=== PATIENT | female | born 1955 | race Two or more races ===

== ENCOUNTER 2018-11-10 07:56 | Emergency (ER) | payer OTHER ==
[~2018-11-10] VITALS: Ht 157.5 cm; Wt 77.1 kg
== END 2018-11-10 14:45 | disposition home or self-care (01) ==
LOC: ER 07:56
DX: R42 Dizziness and giddiness (principal)

== ENCOUNTER 2018-11-17 08:43 | Emergency (ER) | payer OTHER ==
[~2018-11-17] VITALS: Ht 157.5 cm; Wt 76.7 kg
== END 2018-11-17 12:45 ==
LOC: ER 08:43
DX: M54.5 Low back pain (principal); M17.11 Unilateral primary osteoarthritis, right knee; M16.0 Bilateral primary osteoarthritis of hip; I16.0 Hypertensive urgency

== ENCOUNTER 2018-11-26 11:32 | Emergency (ER) | payer OTHER ==
[~2018-11-26] VITALS: Ht 157.5 cm; Wt 77.6 kg
[2018-11-27] MEDS ORDERED: NAPRELAN500 M1 PO (13:58)
[2018-11-27] MEDS ORDERED: COZAAR100 MG PO (13:58)
[2018-11-27] MEDS ORDERED: HYDROCHLOROTH12.5 MG PO (13:59)
== END 2018-11-26 17:12 | disposition home or self-care (01) ==
LOC: ER 11:32
DX: K80.20 Calculus of gallbladder without cholecystitis without obstruction (principal)

== ENCOUNTER 2018-11-27 13:27 | Emergency (ER) | payer OTHER ==
[~2018-11-27] VITALS: Ht 157.5 cm; Wt 71.7 kg
[2018-11-27] MEDS ORDERED: NAPRELAN500 M1 PO (13:58)
[2018-11-27] MEDS ORDERED: COZAAR100 MG PO (13:58)
[2018-11-27] MEDS ORDERED: HYDROCHLOROTH12.5 MG PO (13:59)
== END 2018-11-27 14:32 | disposition home or self-care (01) ==
LOC: ER 13:27
DX: K80.20 Calculus of gallbladder without cholecystitis without obstruction (principal)

== ENCOUNTER 2018-11-28 09:58 | Emergency (ER) | payer OTHER ==
[~2018-11-28] VITALS: Ht 157.5 cm; Wt 76.2 kg
[~2018-11-28 09:58] MED LIST: COZAAR100 MG PO; HYDROCHLOROTH12.5 MG PO; NAPRELAN500 M1 PO
== END 2018-11-28 19:59 | disposition home or self-care (01) ==
LOC: ER 09:58
DX: K80.20 Calculus of gallbladder without cholecystitis without obstruction (principal); R13.19 Other dysphagia; I10 Essential (primary) hypertension

== ENCOUNTER 2021-01-28 09:15 | Inpatient (IN) | payer OTHER ==
[~2021-01-28] VITALS: Ht 157.5 cm; Wt 81.6 kg
[2021-02-04] MEDS ORDERED: PERCOCET 5-3251 EACH PO (12:57)
[2021-02-04] MEDS ORDERED: CIPRO500 MG PO (12:57)
[2021-02-04] MEDS ORDERED: ELIQUIS2.5 MG PO (12:57)
== END 2021-02-04 16:49 | disposition home or self-care (01) | DRG 470 ==
LOC: SURH 02-02 05:31 → O/R 02-02 05:31 → SURH 02-02 07:00
PROVIDERS: ADMIT Orthopaedic Surgery; ATTEND Orthopaedic Surgery
PROC: 0SRC0J9 Replacement of Right Knee Joint with Synthetic Substitute, Cemented, Open Approach (ICD-10-PCS; principal; 2021-02-02 07:00)
DX: M17.11 Unilateral primary osteoarthritis, right knee (principal); D62 Acute posthemorrhagic anemia; M22.11 Recurrent subluxation of patella, right knee; E66.9 Obesity, unspecified; I10 Essential (primary) hypertension; Z20.822 Contact with and (suspected) exposure to COVID-19

== ENCOUNTER 2021-10-26 14:30 | Emergency (ER) | payer OTHER ==
[~2021-10-26] VITALS: Ht 157.5 cm; Wt 83.0 kg
[~2021-10-26 14:30] MED LIST changes: +CIPRO500 MG PO; +ELIQUIS2.5 MG PO; +PERCOCET 5-3251 EACH PO
[2021-10-26] MEDS ORDERED: AMLODIPINE 10 MG. (15:39)
== END 2021-10-26 19:16 | disposition home or self-care (01) ==
LOC: ER 14:30
DX: I10 Essential (primary) hypertension (principal)

== ENCOUNTER 2022-06-02 07:23 | Outpatient (CLI) | payer OTHER ==
[~2022-06-02 07:23] MED LIST changes: +AMLODIPINE 10 MG.
== END 2022-06-02 07:33 | disposition home or self-care (01) ==
LOC: MAMO-SONO 07:23
PROVIDERS: ATTEND General Practice
DX: C49.10 Malignant neoplasm of connective and soft tissue of unspecified upper limb, including shoulder (principal); J44.9 Chronic obstructive pulmonary disease, unspecified

== ENCOUNTER 2022-06-16 09:01 | Outpatient (CLI) | payer OTHER | END 2022-06-16 09:07 | disposition home or self-care (01) | LOC: SONOGRAMA 09:01 | PROVIDERS: ATTEND Pathology Anatomic Pathology & Clinical Pathology | DX: D17.21 Benign lipomatous neoplasm of skin and subcutaneous tissue of right arm (principal) ==

== ENCOUNTER 2022-06-29 12:38 | Outpatient (CLI) | payer OTHER | END 2022-06-29 12:46 | disposition home or self-care (01) | LOC: MAMO-SONO 12:38 | PROVIDERS: ATTEND General Practice | DX: N60.12 Diffuse cystic mastopathy of left breast (principal); Z12.31 Encounter for screening mammogram for malignant neoplasm of breast ==

== ENCOUNTER 2022-06-29 13:17 | Outpatient (CLI) | payer OTHER | END 2022-06-29 13:20 | disposition home or self-care (01) | LOC: LAB 13:17 | PROVIDERS: ATTEND Radiology Diagnostic Radiology | DX: D17.20 Benign lipomatous neoplasm of skin and subcutaneous tissue of unspecified limb (principal) ==

== ENCOUNTER 2022-07-08 08:15 | Outpatient (CLI) | payer OTHER | END 2022-07-08 08:29 | disposition home or self-care (01) | LOC: SONOGRAMA 08:15 | PROVIDERS: ATTEND General Practice | DX: D17.21 Benign lipomatous neoplasm of skin and subcutaneous tissue of right arm (principal) | CPT/HCPCS: 73223; Q9965; 73219 ==

== ENCOUNTER 2022-07-22 08:56 | Outpatient (CLI) | payer OTHER | END 2022-07-22 09:17 | disposition home or self-care (01) | LOC: TOM 08:56 | PROVIDERS: ATTEND Surgery | DX: R22.31 Localized swelling, mass and lump, right upper limb (principal) | CPT/HCPCS: 73202; Q9965 ==

== ENCOUNTER 2022-08-12 07:48 | Outpatient (CLI) | payer OTHER | END 2022-08-12 08:01 | disposition home or self-care (01) | LOC: RAD 07:48 | PROVIDERS: ATTEND General Practice | DX: J44.0 Chronic obstructive pulmonary disease with (acute) lower respiratory infection (principal) ==

== ENCOUNTER 2022-08-30 05:45 | Day surgery (SDC) | payer OTHER | END 2022-08-30 10:30 | disposition home or self-care (01) | LOC: CIR.AMB 05:45 | PROVIDERS: ATTEND Surgery | DX: D17.21 Benign lipomatous neoplasm of skin and subcutaneous tissue of right arm (principal); D48.1 Neoplasm of uncertain behavior of connective and other soft tissue; Z88.0 Allergy status to penicillin; Z20.822 Contact with and (suspected) exposure to COVID-19; I10 Essential (primary) hypertension ==

== ENCOUNTER 2024-04-23 08:00 | Outpatient (CLI) | payer OTHER | END 2024-04-23 08:09 | disposition home or self-care (01) | LOC: MAMO-SONO 08:00 | PROVIDERS: ATTEND General Practice | DX: N64.4 Mastodynia (principal); Z12.31 Encounter for screening mammogram for malignant neoplasm of breast ==

== ENCOUNTER 2024-07-04 08:15 | Outpatient (CLI) | payer OTHER | END 2024-07-04 08:18 | disposition home or self-care (01) | LOC: SONOGRAMA 08:15 | PROVIDERS: ATTEND Pathology Anatomic Pathology & Clinical Pathology | DX: D24.2 Benign neoplasm of left breast (principal); N60.02 Solitary cyst of left breast ==

== ENCOUNTER → 2025-02-11 | Emergency (ER) | payer OTHER ==
[~2025-02-11] VITALS: Ht 157.5 cm; Wt 73.5 kg
[~2025-02-11] MED LIST changes: +DICLOFENAC POTA50 MG PO; +ENALAPRILAT DIHYDRATE 1.25 MG/ML VIAL IV ONE; +ENALAPRILAT DIHYDRATE 2.5 MG/2 ML VIAL IV STA; +LIPITOR40 M1; +MEDROLPACK PO; +METAXALONE400 MG PO; +NORVASC10 MG
== END | disposition home or self-care (01) ==
LOC: ER 18:47
DX: M54.30 Sciatica, unspecified side (principal); M25.562 Pain in left knee; M54.59 Other low back pain; I10 Essential (primary) hypertension; Z88.0 Allergy status to penicillin
CPT/HCPCS: 72100; 73560; 93005; 96365; 99283; J3490